=== PATIENT | male | born 1985 | race Caucasian/White ===

== ENCOUNTER 2018-05-10 08:30 | Emergency (ER) | payer BC ==
[~2018-05-10 08:30] MED LIST: ISOVUE-370 76%-LOCM 1 ML ONE
[2018-05-10 11:13] LABS: #Basophils 0.1 thou/uL (0.0-0.2); #Eosinphils 0.1 thou/uL (0.0-0.7); #Lymphocytes 2.9 thou/uL (1.20-3.40); #Monocytes 0.8 thou/uL (0.11-0.59); #Neutrophils 9.8 thou/uL (1.40-6.50); %Basophils 0.5 % (0.0-1.0); %Eosinophils 0.9 % (0.0-10.0); %Lymphocytes 21.1 % (21.0-51.0); %Monocytes 5.8 % (0.0-10.0); %Neutrophils 71.6 % (42.0-75.0); Hemoglobin 15.5 g/dL (14.0-18.0); Mean Corpuscular HGB CONC 32.6 g/dL (32.0-36.0); Mean Corpuscular Hemoglobin 30.5 pg (27.0-31.0); Mean Corpuscular Volume 93.5 fL (78.0-98.0); Mean Platelet Volume 7.4 fL (7.4-10.4); Platelet Count 257 thou/uL (130-400); RBC Distribution Width 11.3 % (11.5-14.5); Red Blood Cell (RBC) Count 5.08 mill/uL (4.70-6.10); White Blood Cell (WBC) Count 13.7 thou/uL (4.8-10.8)
[2018-05-10 11:37] LABS: ALT (SGPT) 35 U/L (8-55); AST (SGOT) 17 U/L (5-34); Albumin 4.1 g/dL (3.5-5.0); Alkaline Phosphatase 92 U/L (40-150); Anion Gap 15 mmol/L (10-20); BUN (Urea Nitrogen) 12 mg/dL (8.9-20.6); Bilirubin, Total 0.9 mg/dL (0.2-1.2); Calc. Creatinine Clearance 0 mL/min (70-130); Calcium 9.6 mg/dL (7.8-10.44); Carbon Dioxide 21 mmol/L (22-29); Chloride 105 mmol/L (98-107); Estimated GFR-MDRD 86; Glucose 90 mg/dL (70-105); Potassium 4.3 mmol/L (3.5-5.1); Protein, Total 7.1 g/dL (6.0-8.3); Sodium 137 mmol/L (136-145)
--- NOTE | 2018-05-10 12:12 | CT ---
PELVIC CT SCAN WITH IV CONTRAST: HISTORY: A 32-year-old male with a history of perirectal abscess with pain posterior to rectum. FINDINGS: There is an oval somewhat circumscribed hypodensity posterior to the rectum measuring approximately 1 .4 x 3.9 cm in transverse and AP dimensions. This certainly is worrisome for a small perirectal absc ess. IMPRESSION: Approximately 1.4 x 3.9 cm diameter somewhat oval rim-enhancing hypodense mass posterior to the rectu m, evidence for a rectal abscess. No evidence for pelvic adenopathy or abnormal fluid collection wit hin the pelvis. Bilateral fatty inguinal canals. POS: EMILEE
[2018-05-10] MEDS ORDERED: Ketorolac Tromethamine 30 MG/ML VIAL ONE (14:38)
== END 2018-05-10 15:01 | disposition home or self-care (01) ==
LOC: ERS 08:30
DX: K61.0 Anal abscess (principal); F32.9 Major depressive disorder, single episode, unspecified; F17.220 Nicotine dependence, chewing tobacco, uncomplicated; Z71.6 Tobacco abuse counseling; Z79.899 Other long term (current) drug therapy
CPT/HCPCS: 36415; 46050; 72193; 80053; 85025; 96374; 96375; 99406; J1885; J2270

== ENCOUNTER 2019-11-11 06:59 | Outpatient (CLI) | payer BC ==
[2019-11-11 11:26] LABS: #Eosinphils 0.1 thou/uL (0.0-0.7); #Lymphocytes 2.9 thou/uL (1.20-3.40); #Monocytes 0.5 thou/uL (0.11-0.59); #Neutrophils 4.4 thou/uL (1.40-6.50); %Basophils 0.6 % (0.0-1.0); %Eosinophils 1.3 % (0.0-10.0); %Lymphocytes 36.5 % (21.0-51.0); %Monocytes 6.5 % (0.0-10.0); %Neutrophils 55.2 % (42.0-75.0); Bacteria/HPF None Seen HPF (None Seen); Bilirubin Negative (Negative); Blood, Urine Negative (Negative); Clarity Clear (Clear); Glucose, Urine (Dipstick) Normal (Negative); Hemoglobin 16.1 g/dL (14.0-18.0); Leukocyte Negative Leu/uL (Negative); Mean Corpuscular HGB CONC 34.1 g/dL (32.0-36.0); Mean Corpuscular Hemoglobin 30.8 pg (27.0-31.0); Mean Corpuscular Volume 90.4 fL (78.0-98.0); Mean Platelet Volume 8.6 fL (7.4-10.4); Nitrite Negative (Negative); Platelet Count 229 thou/uL (130-400); Protein, Urine (Dipstick) Negative (Neg-Trace); RBC Distribution Width 11.1 % (11.5-14.5); RBC/HPF 0-3 HPF (0-3); Red Blood Cell (RBC) Count 5.21 mill/uL (4.70-6.10); Squamous Epithelial None Seen HPF (0-3); Urobilinogen Normal mg/dL (Less than 2); WBC/HPF 0-3 HPF (0-3)
== END 2019-11-11 07:00 | disposition home or self-care (01) ==
LOC: LABBT 06:59
PROVIDERS: ATTEND Orthopaedic Surgery
DX: Z01.812 Encounter for preprocedural laboratory examination (principal); S83.282A Other tear of lateral meniscus, current injury, left knee, initial encounter
CPT/HCPCS: 81001; 85025; 93005; 93010

== ENCOUNTER 2019-11-17 05:42 | Day surgery (SDC) | payer BC ==
[2019-11-11 10:05] VITALS: BMI 48.4
[2019-11-17] MEDS ORDERED: Lidocaine 1% w/Epinephrine 1:100K 20 ML VIAL ONE (06:37)
[2019-11-17] MEDS ORDERED: Bupivacaine 0.25% HCL 30 ML VIAL ONE (06:37)
[2019-11-17] MEDS ORDERED: Midazolam HCl 2 mg/2 ml Vial ONE (07:08)
[2019-11-17] MEDS ORDERED: Fentanyl 100 MCG/2 ML VIAL ONE ×4 (07:09→09:50)
[2019-11-17] MEDS ORDERED: Ketorolac Tromethamine 30 MG/ML VIAL ONE (10:19)
[2019-11-17] MEDS ORDERED: HYDROcodone/Acetaminophen 5/325 mg Tablet ONE (10:45)
[2019-11-17] MEDS ORDERED: PROPOFOL 200 MG/20 ML VIAL ONE (10:51)
[2019-11-17] MEDS ORDERED: Lidocaine 1% PF 5 ML VIAL ONE (10:51)
--- NOTE | 2019-11-17 11:33 | HP ---
HISTORY OF PRESENT ILLNESS: Mr. Abimael Arellano is a 34-year-old male, who presents with left knee pain, lateral knee pain intermittent for an increased time. Pain is 5/10. Pain began over 2 months ago. The patient has a previous DVT in his right knee and as a youth history of a left ACL reconstruction. Pain occurs with rotation. Pain is affecting sleep, limiting motion. PAST MEDICAL HISTORY: Includes hypertension, anxiety, depression, knee pain, and mood disorder. PAST SURGICAL HISTORY: Left ACL reconstruction with MCL. MEDICATIONS: Currently include; 1. Amlodipine. 2. Desvenlafaxine. 3. Hydroxyzine. 4. Tapentadol. ALLERGIES: METHYLPREDNISOLONE. SOCIAL HISTORY: The patient quit in 2004, was a half a pack a day. . Occasional alcohol. PHYSICAL EXAMINATION: GENERAL: Alert and oriented male, in no acute distress. EXTREMITIES: The patient's left lower extremity, the patient has previous ACL incision scar. He has no ecchymosis, no swelling. He has lateral tenderness noted. anterior /posterior drawer negative. Positive Andreas's. Neurovascularly intact. Negative Homans'. IMAGING DATA: MRI showed a previous ACL graft without signs of acute failure, radial tear, lateral meniscus tear. ASSESSMENT AND PLAN: The patient will be taken to the OR for an arthroscopic lateral meniscectomy. The patient will be started on Xarelto 12 hours postop. I discussed risks and benefits of potential blood clots. I discussed the risks and benefits of surgery to include, pain, scar, bleeding, infection, damage to vital structures, decreased range of motion and strength, arthritis, loss of life or limb, unexpected complications. The patient understands the risks and benefits and elects to proceed. Job ID: [id number] [facility]
--- NOTE | 2019-11-17 11:43 | OP ---
DATE OF PROCEDURE: 11/17/2019 PREOPERATIVE DIAGNOSES: 1. Left lateral meniscus tear. 2. History of previous anterior cruciate ligament reconstruction. POSTOPERATIVE DIAGNOSES: 1. Left lateral meniscus tear. 2. History of previous anterior cruciate ligament reconstruction. PROCEDURES PERFORMED: 1. Left radial tear of the lateral meniscus. 2. Left anterior cruciate ligament reconstruction intact. SALES LEDGER ADMINISTRATOR: None. ANESTHESIOLOGIST: Woodrow Gaxiola MD ANESTHESIA: The patient received a LMA. ESTIMATED BLOOD LOSS: Less than 10 mL. TOURNIQUET TIME: 21 minutes at 300 mmHg. ANTIBIOTICS: Ancef 2 g. COMPLICATIONS: None. HISTORY OF PRESENT ILLNESS: Mr. Arellano is a 34-year-old male, who presents with lateral knee pain, which had been present for about 2-1/2 months. 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 The patient has history of ACL reconstruction as a teenager. The patient had pain that affects the sleep. The patient has MRI evidence of a previous ACL graft with a radial tear of lateral meniscus. I discussed with the patient the risks and benefits of left knee arthroscopy for debridement of lateral meniscus to include, pain, scar, bleeding, infection, damage to vital structures, decreased range of motion and strength, arthritis, vital organ damage, loss of life or limb as well as blood clots. The patient understood the risks and benefits of the procedure and elects to proceed. DESCRIPTION OF PROCEDURE: Time-out was performed designating the patient's left lower extremity as the operative site based on site, consents, and marking. After time-out, the patient's left lower extremity was prepped and draped in sterile fashion. Tourniquet was brought up and left for 21 minutes. Previous horizontal incision was made laterally through the old scar, came into the knee. I then used a spinal needle to localize, excised some of the fat pad was removed, visualized the ACL, was inside the knee joint, which was intact. There was some synovium that was redundant, but it followed its course and tracked. He had negative drawer on exam. I saw his PCL. I then moved to the patellofemoral. There was little fissuring of the patella and the trochlear groove, but no full-thickness or significant defects within the gutters, which were clear. I looked at the medial meniscus, which showed no obvious deepa signs of tearing. Within the lateral meniscus, I saw a small radial tear on the lateral aspect of the body. This was probed. I used a small rongeur and a small biter, cleaned it back and shaver to smooth out the edge. I took my final pictures, washed and closed. I had injected 25 mL of lidocaine with epinephrine preprocedure, 25 mL of Marcaine 0.25% plain postprocedure into the portals as well as the knee joint. The patient will be started on Xarelto 12 hours later to decrease the risk of blood clot. The patient will follow up with me in-house. The patient will be followed at home, will be weightbearing as tolerated and he will follow up with us in clinic in about 12 to 14 days. Job ID: [id number]
== END 2019-11-17 12:10 | disposition home or self-care (01) ==
LOC: SDC 05:42
PROVIDERS: ATTEND Orthopaedic Surgery
PROC: 0SBD4ZZ Excision of Left Knee Joint, Percutaneous Endoscopic Approach (ICD-10-PCS; principal; 2019-11-17)
DX: S83.282A Other tear of lateral meniscus, current injury, left knee, initial encounter (principal); I10 Essential (primary) hypertension; F41.9 Anxiety disorder, unspecified; F32.9 Major depressive disorder, single episode, unspecified; Z79.899 Other long term (current) drug therapy; Z88.8 Allergy status to other drugs, medicaments and biological substances; Z87.891 Personal history of nicotine dependence
CPT/HCPCS: J0690; J1885; J2001; J2250; J2704; J3010; S0020

== ENCOUNTER 2020-07-01 07:49 | Inpatient (IN) | payer BC ==
[2020-07-01] MEDS ORDERED: Acetaminophen 500 MG TAB ONE (08:23)
[2020-07-01] MEDS ORDERED: Ondansetron PF 4 MG/2 ML Vial ONE (08:23)
[2020-07-01 08:36] LABS: #Lymphocytes 1.5 thou/uL (1.20-3.40); #Monocytes 0.6 thou/uL (0.11-0.59); #Neutrophils 13.5 thou/uL (1.40-6.50); %Basophils 0.1 % (0.0-1.0); %Eosinophils 0.1 % (0.0-10.0); %Lymphocytes 9.6 % (21.0-51.0); %Monocytes 3.8 % (0.0-10.0); %Neutrophils 86.4 % (42.0-75.0); Hemoglobin 16.6 g/dL (14.0-18.0); Mean Corpuscular HGB CONC 33.7 g/dL (32.0-36.0); Mean Corpuscular Hemoglobin 30.9 pg (27.0-31.0); Mean Corpuscular Volume 91.6 fL (78.0-98.0); Mean Platelet Volume 7.8 fL (7.4-10.4); Platelet Count 218 thou/uL (130-400); RBC Distribution Width 11.3 % (11.5-14.5); Red Blood Cell (RBC) Count 5.37 mill/uL (4.70-6.10); White Blood Cell (WBC) Count 15.6 thou/uL (4.8-10.8)
[2020-07-01] MEDS ORDERED: cefTRIAXone\\ROCEPHIN 2 GM VIAL ONE (08:54)
[2020-07-01] MEDS ORDERED: Aspirin Chewable 81 MG TAB ONE (08:55)
[2020-07-01] MEDS ORDERED: Dexamethasone 10 MG/ML VIAL ONE (08:55)
[2020-07-01] MEDS ORDERED: Albuterol 200 PUFF (6.7GM INHALER) ONE (08:55)
[2020-07-01 09:04] LABS: ALT (SGPT) 37 U/L (8-55); AST (SGOT) 24 U/L (5-34); Albumin 4.1 g/dL (3.5-5.0); Alkaline Phosphatase 70 U/L (40-110); Anion Gap 16 mmol/L (10-20); BUN (Urea Nitrogen) 15 mg/dL (8.9-20.6); Bilirubin, Total 1.2 mg/dL (0.2-1.2); Calc. Creatinine Clearance 0 mL/min (70-130); Calcium 9.5 mg/dL (7.8-10.44); Carbon Dioxide 27 mmol/L (22-29); Chloride 97 mmol/L (98-107); Estimated GFR-MDRD 66; Globulin 3.3 g/dL (2.4-3.5); Glucose 107 mg/dL (70-105); Potassium 3.3 mmol/L (3.5-5.1); Protein, Total 7.4 g/dL (6.0-8.3); Sodium 137 mmol/L (136-145)
[2020-07-01] MEDS ORDERED: Ketorolac Tromethamine 30 MG/ML VIAL ONE (09:09)
--- NOTE | 2020-07-01 09:39 | CT ---
Head CT without contrast 07/01/2020: Comparison: None HISTORY: Covid positive patient, severe headaches TECHNIQUE: Axial CT imaging at 5 mm intervals from vertex through skull base without contrast FINDINGS: There is partial opacification of the right sphenoid sinus posteriorly. No displaced calvar ial fracture. No intracranial hemorrhage, midline shift, or mass effect. IMPRESSION: No intracranial hemorrhage.
[2020-07-01] MEDS ORDERED: Senokot S 8.6-50 MG TAB PO PRN (09:49)
[2020-07-01] MEDS ORDERED: Acetaminophen 325 MG TAB PO PRN ×2 (09:49→10:58)
[2020-07-01] MEDS ORDERED: Ondansetron PF 4 MG/2 ML Vial IVP PRN (09:49)
--- NOTE | 2020-07-01 10:12 | CT ---
CT CHEST: 07/01/20 PROVIDED CLINICAL HISTORY: Dyspnea. COVID positive. FINDINGS: The heart, pericardium and great vessels are suboptimally evaluated in the absence of IV contrast mat erial. Prominent by number and upper limits of normal in caliber mediastinal lymph nodes are seen. No eviden ce for axillary lymph node enlargement. Evaluation for hilar lymph node enlargement is limited by lac k of IV contrast material. The airway appears patent and of normal caliber. There are diffuse patchy ground glass opacities in a primarily peripheral distribution involving both lungs with associated interstitial thickening and occasional consolidation. There is no pleural fluid or pneumothorax apparent. The visualized portions of the upper abdomen demonstrate an unremarkable unenhanced CT appearance. No concerning lytic or blastic bony lesions are seen. IMPRESSION: Extensive bilateral pulmonary parenchymal opacities, typical for COVID pneumonia. POS: SHARLENE
--- NOTE | 2020-07-01 10:27 | PDOC.HHP ---
Hospitalist HPI - History of Present Illness Worsening Covid symptoms History of Present Illness: PCP: Dr. Farrukh Johnson The patient is a 35-year-old male with a past medical history significant for hypertension that comes into the emergency department for worsening Covid symptoms. The patient reports that he was diagnosed with Covid infection on 06/26/2020. He reports that his PCP, at that time started him on a azithromycin oral antibiotics. Today would be his last dose of the antibiotic regimen, ho wever, he did not take his medication today. He reports that this morning he became severely short of breath, with associated chest pain, heart palpitations, severe headache. He reports that he has had some mild abdominal pain, nausea, vomiting and diarrhea. He reports that he has had 2 loose stools, denies any hematochezia or melena. He reports that his headache is generalized, denies neck stiffness, vision changes, focal motor deficits, difficulty speaking or history of migraines. He reports that his chest pain is generalized, only present with coughing, exacerbated and relieved by nothing. He has no history of DVT/PE. Denies any illicit drug use. He has no history of COPD/asthma. He reports that his cough is productive, thick mucus. Denies any hemoptysis. He denies any urinary symptoms. ED Course: VITAL SIGNS [place] Jul 01, 2020 07:50 LAUREN Ruelas [place] BP: 118/80, Pulse: 121, Resp: 40, Temp: 102.4 (Oral), Pain: 8, O2 sat: 85 on (Room Air), Time: 07/01/2020 07:50. VITAL SIGNS [place] Jul 01, 2020 08:10 LAUREN Gonsales Lauren BP: 92/74, MAP: 80, Pulse: 118, Resp: 38, Pain: 8, O2 sat: 95 on (3L Oxygen), Time: 07/01/2020 08:10. VITAL SIGNS [place] Jul 01, 2020 08:30 LAUREN Gonsales Lauren BP: 138/84, Pulse: 105, Resp: 40, Pain: 8, O2 sat: 94 on (3L Oxygen), Time: 07/01/2020 08:30. Medication ministration: K-Dur 40 mEq Oral Acknowledged 09:23 07/01/2020 Toradol injection 30 mg IV Push Given 09:14 07/01/2020 Aspirin Low Dose 324 mg Oral Given 09:07 07/01/2020 Proventil HFA 2 inhalation Inhaler-MDI Given 09:07 07/01/2020 Decadron Phosphate injection 10 mg IV Push Given 09:07 07/01/2020 cefTRIAXone injection 2 g IV Piggy Back Given 08:54 07/01/2020 ondansetron 4 mg IV Push Given 08:44 07/01/2020 Tylenol 1 g Oral Given 08:44 07/01/2020 sodium chloride 0.9 % intravenous 1000 mL IV Fluid Infusion Given 08:19 07/01/2020 Hospitalist ROS - Review of Systems All other systems reviewed; all pertinent +/- noted in HPI/Subj - Medication Medications: 1. Devenlafaxine 100mg po daily. 2. Norvasc 10mg po daily. Allergies: methylprednisolone (Unconfirmed), No Known Drug Allergies Hospitalist History - Past Medical History Source: patient, RN notes reviewed Cardiac: reports: HTN - Past Surgical History Past Surgical History: reports: Other (Left knee surgery) - Family History Other Family History: Noncontributory to this case - Social History Smoking Status: Former smoker (Quit 2004, 09/01 ppd) Alcohol: reports: Rare Drugs: reports: none Living Situation: With Family Occupation: Works at [employer] Activity level: independent ambulation - Exam General Appearance: NAD, awake alert, ill appearing (Mildly ill-appearing) General - other findings: speaking complete sentences, obese Eye: anicteric sclera ENT: normocephalic atraumatic, dry oral mucosa Neck: supple, symmetric Heart: RRR, no murmur, no gallops, no rubs, normal peripheral pulses Respiratory: no wheezes, rales, rhonchi Gastrointestinal: soft, non-tender, normal bowel sounds, no guarding, no rigidity Extremities: no cyanosis, no edema Skin: no rashes Neurological: cranial nerve grossly intact, no weakness, no focal deficits. negative: facial droop, speech deficit Musculoskeletal: normal tone, normal strength Psychiatric: normal affect, A&O x 3 Hospitalist Results - Labs Result Diagrams: 07/01/20 08:17 07/01/20 08:17 Lab results: WBC 15.6 thou/uL (4.8-10.8) H 07/01/20 08:17 Hgb 16.6 g/dL (14.0-18.0) 07/01/20 08:17 Hct 49.2 % (42.0-52.0) 07/01/20 08:17 MCV 91.6 fL (78.0-98.0) 07/01/20 08:17 Plt Count 218 thou/uL (130-400) 07/01/20 08:17 Neutrophils % 86.4 % (42.0-75.0) H 07/01/20 08:17 Sodium 137 mmol/L (136-145) 07/01/20 08:17 Potassium 3.3 mmol/L (3.5-5.1) L 07/01/20 08:17 Chloride 97 mmol/L (98-107) L 07/01/20 08:17 Carbon Dioxide 27 mmol/L (22-29) 07/01/20 08:17 BUN 15 mg/dL (8.9-20.6) 07/01/20 08:17 Creatinine 1.26 mg/dL (0.7-1.3) 07/01/20 08:17 Glucose 107 mg/dL (70-105) H 07/01/20 08:17 Lactic Acid 1.3 mmol/L (0.5-2.2) 07/01/20 08:17 Calcium 9.5 mg/dL (7.8-10.44) 07/01/20 08:17 Total Bilirubin 1.2 mg/dL (0.2-1.2) 07/01/20 08:17 AST 24 U/L (5-34) 07/01/20 08:17 ALT 37 U/L (8-55) 07/01/20 08:17 Alkaline Phosphatase 70 U/L (40-110) 07/01/20 08:17 Troponin I 0.012 ng/mL (< 0.028) 07/01/20 08:17 C-Reactive Protein 30.29 mg/dL (= or < 0.5) H 07/01/20 08:17 Serum Total Protein 7.4 g/dL (6.0-8.3) 07/01/20 08:17 Albumin 4.1 g/dL (3.5-5.0) 07/01/20 08:17 - EKG Interpretation EK lead EKG interpreted by Emergency Department Physician at time of study, 12 lead EKG shows normal sinus rhythm, Rate (beats per minute): 78, Conduction normal, ST segments normal, T waves normal, Ector normal. - Radiology Interpretation CT scan - head Status: report reviewed by me Additional Comment: IMPRESSION: No intracranial hemorrhage. CT scan - chest Status: report reviewed by me Additional Comment: Extensive bilateral pulmonary parenchymal opacities, typical for Covid pneumonia Chest x-ray Status: pending Hospitalist H&P A/P - Problem (1) Acute respiratory failure with hypoxia Code(s): J96.01 - ACUTE RESPIRATORY FAILURE WITH HYPOXIA Status: Acute (2) Sepsis Code(s): A41.9 - SEPSIS, UNSPECIFIED ORGANISM Status: Acute (3) Pneumonia due to COVID-19 virus Code(s): U07.1 - COVID-19; J12.89 - OTHER VIRAL PNEUMONIA Status: Acute (4) Hypokalemia Code(s): E87.6 - HYPOKALEMIA Status: Acute (5) Chest pain Code(s): R07.9 - CHEST PAIN, UNSPECIFIED Status: Acute (6) Headache Code(s): R51.9 - HEADACHE, UNSPECIFIED Status: Acute (7) Hypertension Code(s): I10 - ESSENTIAL (PRIMARY) HYPERTENSION Status: Chronic (8) Depression Code(s): F32.9 - MAJOR DEPRESSIVE DISORDER, SINGLE EPISODE, UNSPECIFIED Status: Chronic - Plan Plan: 35/M with PMH HTN and recent Covid infection diagnosis presents for worsening Covid symptoms. Admit to telemetry floor, inpatient status. Expected length of stay greater than 2 midnights. Presented febrile, tachycardic, tachypneic, hypoxic, NL BP. EKG sinus rhythm 78 bpm, no ST elevations. CT brain negative for acute process. CT chest extensive bilateral pulmonary parenchymal opacities, typical for Covid pneumonia. CXR and ABG pending. Troponin negative, DD 0.87, WBC 15.7, LA 1.3. Ferritin 852, CRP 30.29, LDH 375, DD 0.87, lymphocytopenia #Acute respiratory failure with hypoxia Upon examination no acute respiratory distress. 95% SPO2 on 3 LNC. Continue dexamethasone daily. Continue Rocephin and add azithromycin daily. Pending ABG results, will consult ID for remdesivir rec. Isolation precautions. Trend acute phase reactants. Start Vit D, Vit C, zinc. Lovenox twice daily #Sepsis Likely secondary to Covid pneumonia infection. No blood CX taken. #Pneumonia due to Covid 19 virus Plan as above, per problem #1. #Hypokalemia Mild. Presented K 3.3 Received 40 mEq in ED. We will check magnesium level Recheck level in a.m. #Chest pain Atypical. Cardiac risk factors include hypertension. Likely secondary to problem #1 and 2. We will trend troponins. We will continue aspirin. #Headache severe. Resolved on assessment. No focal deficits CT brain negative. Likely related to Problem #3. Continue tylenol prn. #Hypertension Presented normotensive. Takes Norvasc at home. Restart home medication. #Depression Denies SI/HI. Restart home dose Desvenflaxine Lovenox for DVT prophylaxis. Pepcid for GI prophylaxis. Full code. Discussed the case with Dr. Canseco.
[2020-07-01] MEDS ORDERED: HYDROcodone/Acetaminophen 5/325 mg Tablet PO PRN (10:58)
[2020-07-01] MEDS ORDERED: Guaifenesin DM 100-10/5 ML UDCUP PO PRN (10:58)
[2020-07-01] MEDS ORDERED: Benzonatate 100 MG CAP PO PRN (11:04)
[2020-07-01 11:33] LABS: Actual Bicarbonate (HCO3a) 24.5 mEq/L (22-28); Analyzer IN Cardio ER; CO2 Tension 39.3 mmHg (35.0-45.0); Calcium, Ionized (arterial) 1.16 mmol/L (1.12-1.30); Carboxyhemoglobin (COHb) 0.5 gm% (0.0-3.0); Hemoglobin (Hb) 15.4 g/dL (14.0-18.0); Potassium - ABG Lab 3.55 mmol/L (3.70-5.30); pH, Arterial 7.41 (7.35-7.45)
--- NOTE | 2020-07-01 11:36 | RAD ---
PORTABLE CHEST: 07/01/20 PROVIDED CLINICAL HISTORY: Shortness of breath. COVID positive. COMPARISON: 03/21/2012 FINDINGS: Evaluation is limited by patient body habitus. Heart size appears normal. There are bilateral patchy parenchymal and interstitial opacities involving primarily the mid to lower lung zones, typical for C OVID pneumonia. There is no pleural fluid or pneumothorax apparent. IMPRESSION: Bilateral pulmonary parenchymal opacities, typical for COVID pneumonia. POS: SHARLENE
[2020-07-01 11:37] LABS: ALV-art Gradient 99.315 mmHg (0-20); O2 Tension (PaO2), arterial 51.2 mmHg (80.0-100.0); Puncture Site RBRACH
[2020-07-01] MEDS ORDERED: Venlafaxine HCl XR 150 MG CAP PO SCH (11:45)
[2020-07-01] MEDS ORDERED: Potassium Chloride 20 MEQ TAB ONE (12:00)
[2020-07-01 12:33] LABS: Troponin I 0.027 ng/mL (< 0.028)
[2020-07-01] MEDS ORDERED: Azithromycin 500 MG VIAL ONE (14:47)
[2020-07-01 15:14] VITALS: BMI 43.5
[2020-07-01] MEDS: Venlafaxine HCl XR 150 MG CAP PO SCH (16:06)
[2020-07-01] MEDS: Azithromycin 500 MG in Sodium Chloride 0.9% 250 ML 250 ML IVPB SCH (16:06)
[2020-07-01 17:00] LABS: Troponin I Less than 0.010 ng/mL (< 0.028)
[2020-07-01] MEDS ORDERED: REMDESIVIR (EUA) 200 MG in Sodium Chloride 0.9% 250 ML 210 ML IV SCH (18:00)
[2020-07-01] MEDS: HYDROcodone/Acetaminophen 5/325 mg Tablet PO PRN ×2 (18:34→21:48)
[2020-07-01] MEDS: Enoxaparin Sodium 40 MG/0.4 ML SYRINGE SC SCH (19:55)
[2020-07-01] MEDS: Famotidine 20 MG TAB PO SCH (19:55)
[2020-07-02 03:34] LABS: #Lymphocytes 1.3 thou/uL (1.20-3.40); #Monocytes 0.5 thou/uL (0.11-0.59); #Neutrophils 11.8 thou/uL (1.40-6.50); %Basophils 0.1 % (0.0-1.0); %Eosinophils 0.1 % (0.0-10.0); %Lymphocytes 9.6 % (21.0-51.0); %Monocytes 3.7 % (0.0-10.0); %Neutrophils 86.6 % (42.0-75.0); Hemoglobin 14.7 g/dL (14.0-18.0); Mean Corpuscular Hemoglobin 31.5 pg (27.0-31.0); Mean Corpuscular Volume 92.7 fL (78.0-98.0); Mean Platelet Volume 7.8 fL (7.4-10.4); Platelet Count 220 thou/uL (130-400); RBC Distribution Width 11.1 % (11.5-14.5); Red Blood Cell (RBC) Count 4.67 mill/uL (4.70-6.10); White Blood Cell (WBC) Count 13.6 thou/uL (4.8-10.8)
[2020-07-02 04:06] LABS: ALT (SGPT) 32 U/L (8-55); AST (SGOT) 22 U/L (5-34); Albumin 3.3 g/dL (3.5-5.0); Alkaline Phosphatase 55 U/L (40-110); Anion Gap 15 mmol/L (10-20); BUN (Urea Nitrogen) 19 mg/dL (8.9-20.6); Bilirubin, Total 0.7 mg/dL (0.2-1.2); Calc. Creatinine Clearance 294 mL/min (70-130); Calcium 9.1 mg/dL (7.8-10.44); Carbon Dioxide 20 mmol/L (22-29); Chloride 108 mmol/L (98-107); Estimated GFR-MDRD Greater than 90; Globulin 2.8 g/dL (2.4-3.5); Glucose 105 mg/dL (70-105); Potassium 4.3 mmol/L (3.5-5.1); Protein, Total 6.1 g/dL (6.0-8.3); Sodium 139 mmol/L (136-145)
[2020-07-02] MEDS: HYDROcodone/Acetaminophen 5/325 mg Tablet PO PRN ×4 (04:43→21:23)
[2020-07-02] MEDS: Aspirin 81 mg Enteric Coated Tablet PO SCH (07:55)
[2020-07-02] MEDS: Zinc Sulfate 220 MG CAP PO SCH (07:55)
[2020-07-02] MEDS: Enoxaparin Sodium 40 MG/0.4 ML SYRINGE SC SCH ×2 (07:55→19:50)
[2020-07-02] MEDS: Dexamethasone 4 mg/ml Vial SLOW IVP SCH (07:56)
[2020-07-02] MEDS: Famotidine 20 MG TAB PO SCH ×2 (07:56→19:50)
[2020-07-02] MEDS: Amlodipine 10 MG TAB PO SCH (07:56)
[2020-07-02] MEDS: Venlafaxine HCl XR 150 MG CAP PO SCH (07:56)
[2020-07-02] MEDS: Cholecalciferol 1,000 UNITS (25 MCG) TAB PO SCH (07:56)
[2020-07-02] MEDS: Ascorbic Acid 500 mg Chewable Tablet PO SCH (07:57)
[2020-07-02] MEDS ORDERED: cefTRIAXone\\ROCEPHIN 1 GM in Sodium Chloride 0.9% 100 ML IVPB SCH (09:00)
[2020-07-02] MEDS ORDERED: Enoxaparin Sodium 40 MG/0.4 ML SYRINGE SC SCH (09:00)
[2020-07-02] MEDS: Azithromycin 500 MG in Sodium Chloride 0.9% 250 ML 250 ML IVPB SCH (11:51)
[2020-07-02] MEDS: Fioricet 325/50/40 mg Tablet PO PRN ×2 (12:54→19:10)
--- NOTE | 2020-07-02 14:25 | PDOC.HOSPP ---
- Subjective Encounter Date: 07/02/20 Subjective: Denies chest pain or shortness of breath. He remains on high flow nasal cannula. - Objective Vital Signs & Weight: Vital Signs (12 hours) Temp Pulse Ox 07/02/20 12:00 98.2 F 07/02/20 08:00 97.7 F 94 L 07/02/20 04:40 96.4 F L Weight Weight 312 lb 6.32 oz Most Recent Monitor Data Heart Rate from ECG 96 NIBP 161/103 NIBP BP-Mean 122 Respiration from ECG 17 SpO2 96 I&O: 07/01/20 07/02/20 07/03/20 06:59 06:59 06:59 Intake Total 2660 Output Total 600 Balance 2059 Result Diagrams: 07/02/20 03:17 07/02/20 03:17 Hospitalist ROS - Medication Medications: Active Medications Generic Name Dose Route Start Last Admin Trade Name Freq PRN Reason Stop Dose Admin Acetaminophen/Butalbital/Caffeine 1 tab 07/02/20 09:52 07/02/20 12:54 Fioricet 325/50/40 Mg Tablet PO 07/07/20 09:53 1 tab Q4H PRN Administration Headache Hydrocodone Bitart/Acetaminophen 1 tab 07/01/20 10:58 07/01/20 17:30 Hydrocodone/Acetaminophen 5/325 Mg Tablet PO 1 tab Q4H PRN Administration Moderate Pain (4-6) Hydrocodone Bitart/Acetaminophen 2 tab 07/01/20 10:58 07/02/20 08:41 Hydrocodone/Acetaminophen 5/325 Mg Tablet PO 2 tab Q4H PRN Administration Severe Pain (7-10) Amlodipine Besylate 10 mg 07/02/20 09:00 07/02/20 07:56 Amlodipine 10 Mg Tab PO 10 mg DAILY MUKESH Administration Ascorbic Acid 1,000 mg 07/02/20 09:00 07/02/20 07:57 Ascorbic Acid 500 Mg Chewable Tablet PO 1,000 mg DAILY MUKESH Administration Aspirin 81 mg 07/02/20 09:00 07/02/20 07:55 Aspirin 81 Mg Enteric Coated Tablet PO 81 mg DAILY MUKESH Administration Cholecalciferol 2,000 units 07/02/20 09:00 07/02/20 07:56 Cholecalciferol 1,000 Units (25 Mcg) Tab PO 2,000 units DAILY MUKESH Administration Dexamethasone 6 mg 07/02/20 09:00 07/02/20 07:56 Dexamethasone 4 Mg/Ml Vial SLOW IVP 6 mg DAILY MUKESH Administration Enoxaparin Sodium 40 mg 07/01/20 21:00 07/02/20 07:55 Enoxaparin Sodium 40 Mg/0.4 Ml Syringe SC 40 mg 0900,2100 MUKESH Administration Famotidine 20 mg 07/01/20 21:00 07/02/20 07:56 Famotidine 20 Mg Tab PO 20 mg BID MUKESH Administration Ceftriaxone Sodium 1 gm/ 100 mls @ 200 mls/hr 07/02/20 09:00 07/02/20 07:57 Sodium Chloride IVPB 100 mls Q24HR MUKESH Administration Azithromycin 500 mg/ Sodium 250 mls @ 250 mls/hr 07/01/20 12:00 07/02/20 11:51 Chloride IVPB 250 mls 1200 MUKESH Administration Venlafaxine HCl 150 mg 07/01/20 12:00 07/02/20 07:56 Venlafaxine Hcl Xr 150 Mg Cap PO 150 mg DAILY MUKESH Administration Zinc Sulfate 220 mg 07/02/20 09:00 07/02/20 07:55 Zinc Sulfate 220 Mg Cap PO 220 mg DAILY MUKESH Administration - Exam General Appearance: awake alert Neck: supple, no JVD Heart: RRR, no murmur, no gallops, no rubs Respiratory: no wheezes, no tachypnea, rhonchi Gastrointestinal: soft Neurological: cranial nerve grossly intact, no new deficit Hosp A/P (1) Acute respiratory failure with hypoxia Code(s): J96.01 - ACUTE RESPIRATORY FAILURE WITH HYPOXIA Status: Acute (2) Headache Code(s): R51.9 - HEADACHE, UNSPECIFIED Status: Acute (3) Pneumonia due to COVID-19 virus Code(s): U07.1 - COVID-19; J12.89 - OTHER VIRAL PNEUMONIA Status: Acute (4) Depression Code(s): F32.9 - MAJOR DEPRESSIVE DISORDER, SINGLE EPISODE, UNSPECIFIED Status: Chronic (5) Hypertension Code(s): I10 - ESSENTIAL (PRIMARY) HYPERTENSION Status: Chronic - Plan Continue supplemental oxygen to maintain O2 saturation greater than 92%. Currently patient is requiring high flow nasal cannula. Continue dexamethasone. ID and pulmonology consulted.
[2020-07-02 16:16] LABS: Bacteria/HPF None Seen HPF (None Seen); Bilirubin Negative (Negative); Blood, Urine Negative (Negative); Clarity Clear (Clear); Glucose, Urine (Dipstick) Normal (Negative); Ketone, Urine 10 mg/dL (Negative); Leukocyte Negative Leu/uL (Negative); Mucous/LPF 1+ LPF (<2+); Nitrite Negative (Negative); Protein, Urine (Dipstick) 30 mg/dL (Neg-Trace); RBC/HPF 0-3 HPF (0-3); Specific Gravity, Urine 1.043 (1.002-1.036); Squamous Epithelial None Seen HPF (0-3); Urobilinogen 6 mg/dL (Less than 2); WBC/HPF 0-3 HPF (0-3)
[2020-07-02] MEDS: Sodium Chloride 0.9% 1,000 ML IV SCH (18:06)
[2020-07-02] MEDS: REMDESIVIR (EUA) 100 MG in Sodium Chloride 0.9% 250 ML 230 ML IV SCH (18:06)
--- NOTE | 2020-07-02 21:02 | CON ---
DATE OF CONSULTATION: REASON FOR CONSULTATION: COVID pneumonia. HISTORY OF PRESENT ILLNESS: A 35-year-old with history of obesity, hypertension, has been having symptoms approximately for 5 to 7 days. He tested positive on the . He was given oral antimicrobials in the outpatient setting, but developed worsening dyspnea, so he was admitted. Initial findings; BP 118/80, pulse 121, respirations 40, temperature 102.4, saturating at 85% on room air. He was in distress. The lung exam showed diminished breath sounds at the bases. Heart and abdomen examination normal. Neuro examination is nonfocal. Currently, Mr. Arellano is awake. He is sitting in bed. He appears better than when he came in, not as tachypneic, able to speak in full sentences. No headaches. No visual symptoms. Has completely lost the taste of food or the sense of smell. No sore throat, odynophagia, or dysphagia. He has this pleuritic or kind of muscle type of chest wall pain associated with coughing on the right side. No wheezing. No abdominal pain or diarrhea. No genitourinary symptoms. No joint symptoms. No neurological symptoms. PAST MEDICAL HISTORY: Obesity, hypertension, left knee arthroscopy. SOCIAL HISTORY: No drug use or alcoholic beverage use. He chews tobacco, but does not smoke. ALLERGIES: METHYLPREDNISOLONE WITH DIARRHEA REPORTEDLY. LIST OF MEDICATIONS: 1. Norvasc. 2. Ecotrin. 3. Azithromycin. 4. Ceftriaxone. 5. Decadron. 6. Remdesivir. PHYSICAL EXAMINATION: VITAL SIGNS: Temperature has been normal. BP 150/112, heart rate 90, is saturating now at 94% to 96% with 3 L nasal cannula. He had been on high-flow, but now has been transitioned to nasal cannula. SKIN: Normal. There is no lymphadenopathy. HEENT: Ocular movements are conjugate. Oral cavity normal. NECK: Supple. LUNGS: With a few crackles here and there, but no wheezing. HEART: S1, S2. Regular rate. ABDOMEN: Soft, not distended. No ascites. No bladder distention. EXTREMITIES: No joint inflammatory activity. Moving extremities equally. Cognitive function appears to be intact. No edema. LABORATORY DATA: White cell count is 15, now is 13.6; hemoglobin 14; platelets 220 with 86% neutrophils. D-dimer is 0.84. Creatinine 0.71. Ferritin 733. CRP was 26, which is down from 30 when he came in. Urinalysis was not particularly remarkable and bilateral diffuse infiltrates on chest CT consistent with COVID pneumonia. There is moderate ground glass infiltrates in distribution and severity. ASSESSMENT: Obesity with hypertension and severe COVID pneumonia. This is the 8th day of illness and he is on remdesivir since yesterday. Continue Decadron. We will go ahead and discontinue azithromycin and Rocephin, is on enoxaparin already. Hopefully will turn around quickly. Job ID: [id number] [facility]
[2020-07-03] MEDS: Sodium Chloride 0.9% 1,000 ML IV SCH ×2 (03:54→17:49)
[2020-07-03 03:56] LABS: #Lymphocytes 1.9 thou/uL (1.20-3.40); #Monocytes 0.5 thou/uL (0.11-0.59); #Neutrophils 8.3 thou/uL (1.40-6.50); %Basophils 0.2 % (0.0-1.0); %Eosinophils 0.2 % (0.0-10.0); %Lymphocytes 17.6 % (21.0-51.0); %Monocytes 4.8 % (0.0-10.0); %Neutrophils 77.1 % (42.0-75.0); Hemoglobin 14.7 g/dL (14.0-18.0); Mean Corpuscular HGB CONC 34.7 g/dL (32.0-36.0); Mean Corpuscular Hemoglobin 32.2 pg (27.0-31.0); Mean Corpuscular Volume 92.7 fL (78.0-98.0); Mean Platelet Volume 7.7 fL (7.4-10.4); Platelet Count 228 thou/uL (130-400); RBC Distribution Width 11.2 % (11.5-14.5); Red Blood Cell (RBC) Count 4.56 mill/uL (4.70-6.10); White Blood Cell (WBC) Count 10.7 thou/uL (4.8-10.8)
[2020-07-03] MEDS: HYDROcodone/Acetaminophen 5/325 mg Tablet PO PRN ×2 (05:04→18:07)
[2020-07-03] MEDS: Famotidine 20 MG TAB PO SCH ×2 (08:05→21:41)
[2020-07-03] MEDS: Ascorbic Acid 500 mg Chewable Tablet PO SCH (08:05)
[2020-07-03] MEDS: Aspirin 81 mg Enteric Coated Tablet PO SCH (08:05)
[2020-07-03] MEDS: Venlafaxine HCl XR 150 MG CAP PO SCH (08:05)
[2020-07-03] MEDS: Dexamethasone 4 mg/ml Vial SLOW IVP SCH (08:06)
[2020-07-03] MEDS: Cholecalciferol 1,000 UNITS (25 MCG) TAB PO SCH (08:06)
[2020-07-03] MEDS: Amlodipine 10 MG TAB PO SCH (08:06)
[2020-07-03] MEDS: Enoxaparin Sodium 40 MG/0.4 ML SYRINGE SC SCH ×2 (08:07→21:41)
[2020-07-03] MEDS: Zinc Sulfate 220 MG CAP PO SCH (08:08)
--- NOTE | 2020-07-03 15:56 | PDOC.HOSPP ---
- Subjective Encounter Date: 07/03/20 Subjective: The patient is feeling better today. - Objective Vital Signs & Weight: Vital Signs (12 hours) Temp Pulse Ox 07/03/20 12:00 97.2 F L 07/03/20 08:04 95 07/03/20 08:00 97.0 F L 95 07/03/20 04:00 97.4 F L Weight Weight 312 lb 6.32 oz Most Recent Monitor Data Heart Rate from ECG 58 NIBP 136/89 NIBP BP-Mean 104 Respiration from ECG 23 SpO2 96 I&O: 07/02/20 07/03/20 07/04/20 06:59 06:59 06:59 Intake Total 2660 2510 Output Total 600 900 Balance 2060 1610 Result Diagrams: 07/03/20 03:09 07/02/20 03:17 Hospitalist ROS - Medication Medications: Active Medications Generic Name Dose Route Start Last Admin Trade Name Freq PRN Reason Stop Dose Admin Acetaminophen/Butalbital/Caffeine 1 tab 07/02/20 09:52 07/02/20 19:10 Fioricet 325/50/40 Mg Tablet PO 07/07/20 09:53 1 tab Q4H PRN Administration Headache Hydrocodone Bitart/Acetaminophen 1 tab 07/01/20 10:58 07/01/20 17:30 Hydrocodone/Acetaminophen 5/325 Mg Tablet PO 1 tab Q4H PRN Administration Moderate Pain (4-6) Hydrocodone Bitart/Acetaminophen 2 tab 07/01/20 10:58 07/03/20 05:04 Hydrocodone/Acetaminophen 5/325 Mg Tablet PO 2 tab Q4H PRN Administration Severe Pain (7-10) Amlodipine Besylate 10 mg 07/02/20 09:00 07/03/20 08:06 Amlodipine 10 Mg Tab PO 10 mg DAILY MUKESH Administration Ascorbic Acid 1,000 mg 07/02/20 09:00 07/03/20 08:05 Ascorbic Acid 500 Mg Chewable Tablet PO 1,000 mg DAILY MUKESH Administration Aspirin 81 mg 07/02/20 09:00 07/03/20 08:05 Aspirin 81 Mg Enteric Coated Tablet PO 81 mg DAILY MUKESH Administration Cholecalciferol 2,000 units 07/02/20 09:00 07/03/20 08:06 Cholecalciferol 1,000 Units (25 Mcg) Tab PO 2,000 units DAILY MUKESH Administration Dexamethasone 6 mg 07/02/20 09:00 07/03/20 08:06 Dexamethasone 4 Mg/Ml Vial SLOW IVP 6 mg DAILY MUKESH Administration Enoxaparin Sodium 40 mg 07/01/20 21:00 07/03/20 08:07 Enoxaparin Sodium 40 Mg/0.4 Ml Syringe SC 40 mg 0900,2100 MUKESH Administration Famotidine 20 mg 07/01/20 21:00 07/03/20 08:05 Famotidine 20 Mg Tab PO 20 mg BID MUKESH Administration Remdesivir 100 mg/ Sodium 250 mls @ 250 mls/hr 07/02/20 18:00 07/02/20 18:06 Chloride IV 07/05/20 18:59 250 mls 1800 MUKESH Administration Sodium Chloride 1,000 mls @ 75 mls/hr 07/02/20 16:30 07/03/20 03:54 Normal Saline 0.9% IV 1,000 mls .[id number] MUKESH Administration Sodium Chloride 10 ml 07/01/20 10:58 07/03/20 08:09 Flush - Normal Saline 10 Ml Syringe IVF 10 ml PRN PRN Administration Saline Flush Venlafaxine HCl 150 mg 07/01/20 12:00 07/03/20 08:05 Venlafaxine Hcl Xr 150 Mg Cap PO 150 mg DAILY MUKESH Administration Zinc Sulfate 220 mg 07/02/20 09:00 07/03/20 08:08 Zinc Sulfate 220 Mg Cap PO 220 mg DAILY MUKESH Administration - Exam ENT: normocephalic atraumatic Neck: supple, no JVD Heart: RRR, no murmur Respiratory: CTAB, no wheezes, no rales, no ronchi, no tachypnea Gastrointestinal: soft Neurological: no new deficit Hosp A/P (1) Acute respiratory failure with hypoxia Code(s): J96.01 - ACUTE RESPIRATORY FAILURE WITH HYPOXIA Status: Acute (2) Headache Code(s): R51.9 - HEADACHE, UNSPECIFIED Status: Acute (3) Pneumonia due to COVID-19 virus Code(s): U07.1 - COVID-19; J12.89 - OTHER VIRAL PNEUMONIA Status: Acute (4) Depression Code(s): F32.9 - MAJOR DEPRESSIVE DISORDER, SINGLE EPISODE, UNSPECIFIED Status: Chronic (5) Hypertension Code(s): I10 - ESSENTIAL (PRIMARY) HYPERTENSION Status: Chronic - Plan Patient's oxygenation has improved since yesterday. Currently patient is requiring high flow nasal cannula. Continue dexamethasone and remdesivir. ID and pulmonology consulted.
[2020-07-03] MEDS: REMDESIVIR (EUA) 100 MG in Sodium Chloride 0.9% 250 ML 230 ML IV SCH (17:48)
[2020-07-03] MEDS: Doxycycline 100 MG CAP PO SCH (21:41)
[2020-07-04 04:10] LABS: ALT (SGPT) 33 U/L (8-55); AST (SGOT) 18 U/L (5-34); Albumin 2.9 g/dL (3.5-5.0); Alkaline Phosphatase 47 U/L (40-110); Bilirubin, Direct 0.2 mg/dL (0.1-0.3); Bilirubin, Total 0.4 mg/dL (0.2-1.2); Protein, Total 5.4 g/dL (6.0-8.3)
[2020-07-04] MEDS: Sodium Chloride 0.9% 1,000 ML IV SCH (06:25)
[2020-07-04] MEDS: HYDROcodone/Acetaminophen 5/325 mg Tablet PO PRN ×4 (06:36→21:37)
[2020-07-04] MEDS: Doxycycline 100 MG CAP PO SCH ×2 (07:49→20:04)
--- NOTE | 2020-07-04 07:49 | CON ---
DATE OF CONSULTATION: HISTORY OF PRESENT ILLNESS: Abimael Arellano is a 35-year-old gentleman who was admitted several days ago with fever, chills, body aches, and cough. He is coronavirus positive on the of this month. His is also positive. He thought he is going to . He came to the ER where x-ray was taken, which showed infiltrates. Admitted. He was now seen by Infectious Disease, started on Decadron and remdesivir, feels better. Works at [employer]. No history of previous pneumonia, TB, or asthma. Nonsmoker. PAST MEDICAL HISTORY: Hypertension. PREVIOUS SURGERIES: Left knee surgery. HOME MEDICATIONS: Include: 1. Amlodipine 5. 2. Effexor 150. ALLERGIES: METHYLPREDNISONE. REVIEW OF SYSTEMS: Otherwise, 10-point negative. PHYSICAL EXAMINATION: VITAL SIGNS: He is on low-flow O2, his sats are , blood pressure 136/98, pulse 80, respiratory rate 18. CHEST: No wheezing. No crackles. CARDIAC: Normal S1, S2. No gallops. ABDOMEN: No masses. LABORATORY DATA: D-dimer is 1.32. Additional lab shows white count 10,000; H and H 14 and 42; platelet count 278. Chemistry profile shows lytes are normal. His C-reactive protein is 26. Ferritin 373. ASSESSMENT: Coronavirus positive pneumonia. I would continue empiric antibiotics, remdesivir, consider plasma. Continue observation in the hospital. Consultation note, 70 minutes, 50% of direct patient care. Job ID: [id number]
[2020-07-04] MEDS: Cholecalciferol 1,000 UNITS (25 MCG) TAB PO SCH (07:50)
[2020-07-04] MEDS: Ascorbic Acid 500 mg Chewable Tablet PO SCH (07:50)
[2020-07-04] MEDS: Amlodipine 10 MG TAB PO SCH (07:50)
[2020-07-04] MEDS: Aspirin 81 mg Enteric Coated Tablet PO SCH (07:50)
[2020-07-04] MEDS: Venlafaxine HCl XR 150 MG CAP PO SCH (07:51)
[2020-07-04] MEDS: Dexamethasone 4 mg/ml Vial SLOW IVP SCH (07:51)
[2020-07-04] MEDS: Zinc Sulfate 220 MG CAP PO SCH (07:52)
[2020-07-04] MEDS: Famotidine 20 MG TAB PO SCH ×2 (07:52→20:04)
[2020-07-04] MEDS: Enoxaparin Sodium 40 MG/0.4 ML SYRINGE SC SCH ×2 (07:52→20:04)
--- NOTE | 2020-07-04 10:05 | PRG ---
DATE OF SERVICE: 07/04/2020 SUBJECTIVE: Abimael Arellano remains in the MICU on low-flow O2 4 L, sats 100%. OBJECTIVE: VITAL SIGNS: respiratory rate 18. GENERAL: He is feeling better. CHEST: No wheezing. No crackles. CARDIAC: Normal S1, S2. No gallops. ABDOMEN: Soft. LABORATORY DATA: C-reactive protein is down to 7.52. ASSESSMENT: Respiratory failure secondary to coronavirus positive pneumonia. Bilateral bronchopneumonia. PLAN: Continue Decadron, doxy, remdesivir. Plasma has been given. PT. Supportive care. We will follow. Job ID: [id number]
[2020-07-04] MEDS: Fioricet 325/50/40 mg Tablet PO PRN (15:37)
--- NOTE | 2020-07-04 16:22 | PDOC.HOSPP ---
- Subjective Encounter Date: 07/04/20 Subjective: Feels better. - Objective Vital Signs & Weight: Vital Signs (12 hours) Temp Pulse Ox 07/04/20 12:00 97.0 F L 07/04/20 08:00 97.1 F L 96 Weight Weight 312 lb 6.32 oz Most Recent Monitor Data Heart Rate from ECG 83 NIBP 144/83 NIBP BP-Mean 103 Respiration from ECG 28 SpO2 97 I&O: 07/03/20 07/04/20 07/05/20 06:59 06:59 06:59 Intake Total 2510 3516 Output Total 900 1275 Balance 1610 2241 Result Diagrams: 07/03/20 03:09 07/02/20 03:17 Hospitalist ROS - Medication Medications: Active Medications Generic Name Dose Route Start Last Admin Trade Name Freq PRN Reason Stop Dose Admin Acetaminophen/Butalbital/Caffeine 1 tab 07/02/20 09:52 07/04/20 15:37 Fioricet 325/50/40 Mg Tablet PO 07/07/20 09:53 1 tab Q4H PRN Administration Headache Hydrocodone Bitart/Acetaminophen 1 tab 07/01/20 10:58 07/01/20 17:30 Hydrocodone/Acetaminophen 5/325 Mg Tablet PO 1 tab Q4H PRN Administration Moderate Pain (4-6) Hydrocodone Bitart/Acetaminophen 2 tab 07/01/20 10:58 07/04/20 11:36 Hydrocodone/Acetaminophen 5/325 Mg Tablet PO 2 tab Q4H PRN Administration Severe Pain (7-10) Amlodipine Besylate 10 mg 07/02/20 09:00 07/04/20 07:50 Amlodipine 10 Mg Tab PO 10 mg DAILY MUKESH Administration Ascorbic Acid 1,000 mg 07/02/20 09:00 07/04/20 07:50 Ascorbic Acid 500 Mg Chewable Tablet PO 1,000 mg DAILY MUKESH Administration Aspirin 81 mg 07/02/20 09:00 07/04/20 07:50 Aspirin 81 Mg Enteric Coated Tablet PO 81 mg DAILY MUKESH Administration Benzonatate 100 mg 07/01/20 11:04 07/04/20 06:41 Benzonatate 100 Mg Cap PO 100 mg TIDPRN PRN Administration Cough Cholecalciferol 2,000 units 07/02/20 09:00 07/04/20 07:50 Cholecalciferol 1,000 Units (25 Mcg) Tab PO 2,000 units DAILY MUKESH Administration Dexamethasone 6 mg 07/02/20 09:00 07/04/20 07:51 Dexamethasone 4 Mg/Ml Vial SLOW IVP 6 mg DAILY MUKESH Administration Doxycycline Hyclate 100 mg 07/03/20 21:00 07/04/20 07:49 Doxycycline 100 Mg Cap PO 07/10/20 21:01 100 mg BID MUKESH Administration Enoxaparin Sodium 40 mg 07/01/20 21:00 07/04/20 07:52 Enoxaparin Sodium 40 Mg/0.4 Ml Syringe SC 40 mg 0900,2099 MUKESH Administration Famotidine 20 mg 07/01/20 21:00 07/04/20 07:52 Famotidine 20 Mg Tab PO 20 mg BID MUKESH Administration Remdesivir 100 mg/ Sodium 250 mls @ 250 mls/hr 07/02/20 18:00 07/03/20 17:48 Chloride IV 07/05/20 18:59 250 mls 1800 MUKESH Administration Sodium Chloride 1,000 mls @ 75 mls/hr 07/02/20 16:30 07/04/20 06:25 Normal Saline 0.9% IV 1,000 mls .[id number] MUKESH Administration Sodium Chloride 10 ml 07/01/20 10:58 07/03/20 08:09 Flush - Normal Saline 10 Ml Syringe IVF 10 ml PRN PRN Administration Saline Flush Venlafaxine HCl 150 mg 07/01/20 12:00 07/04/20 07:51 Venlafaxine Hcl Xr 150 Mg Cap PO 150 mg DAILY MUKESH Administration Zinc Sulfate 220 mg 07/02/20 09:00 07/04/20 07:52 Zinc Sulfate 220 Mg Cap PO 220 mg DAILY MUKESH Administration - Exam General Appearance: awake alert ENT: normocephalic atraumatic Neck: supple, no JVD Respiratory: normal chest expansion, no tachypnea Gastrointestinal: soft Neurological: cranial nerve grossly intact, no focal deficits Hosp A/P (1) Acute respiratory failure with hypoxia Code(s): J96.01 - ACUTE RESPIRATORY FAILURE WITH HYPOXIA Status: Acute (2) Headache Code(s): R51.9 - HEADACHE, UNSPECIFIED Status: Acute (3) Pneumonia due to COVID-19 virus Code(s): U07.1 - COVID-19; J12.89 - OTHER VIRAL PNEUMONIA Status: Acute (4) Depression Code(s): F32.9 - MAJOR DEPRESSIVE DISORDER, SINGLE EPISODE, UNSPECIFIED Status : Chronic (5) Hypertension Code(s): I10 - ESSENTIAL (PRIMARY) HYPERTENSION Status: Chronic - Plan Patient's oxygenation has improved since yesterday. Currently patient is requiring high flow nasal cannula. Continue dexamethasone and remdesivir. The patient to receive convalescent plasma today.
--- NOTE | 2020-07-04 16:31 | PQF ---
CLINICAL DOCUMENTATION CLARIFICATION FORM: Dear Dr. LOREE MACHADO Date: 07-04-20 Please exercise your independent, professional judgment in responding to the clarification form. Clinical indicators are provided on the bottom of this form for your review. Please check appropriate box(es) to clarify if the following diagnosis has been ruled in our ruled out: SEPSIS [ > ] Ruled in diagnosis [ ] Continue to treat [ ] Resolved [ ] Ruled out diagnosis [ ] Other diagnosis [ ] Unable to determine In addition, please specify: Present on Admission (POA): [ > ] Yes [ ] No [ ] Unable to determine For continuity of documentation, please document condition throughout progress notes and discharge summary. Thank You. To be completed by CDI/Coding staff for physician review: CLINICAL INDICATORS - SIGNS / SYMPTOMS / LABS / RESULTS AND LOCATION IN MR: ER DX 07-01-20: COVID PNEUMONIA, CHEST PAIN ON BREATHING, DYSPNEA, FEVER H&P 07-01-20: ACUTE RESPIRATORY FAILURE WITH HYPOXIA, ACUTE SEPSIS, PNEUMONIA DUE TO COVID -19 VIRUS, HYPOKALEMIA, CP, HEADACHE, HTN, DEPRESSION WBC: 07-01-20: 15.6, 07-02-20: 13.6 CRP 07-01-20: 30.29 07-01-20: 26.19 07-03-20: 7.52 RISK FACTORS / RESULTS AND LOCATION IN MR: H&P 07-01-20: ACUTE RESPIRATORY FAILURE WITH HYPOXIA, ACUTE SEPSIS, PNEUMONIA DUE TO COVID -19 VIRUS, HYPOKALEMIA, CP, HEADACHE, HTN, DEPRESSION TREATMENTS / RESULTS AND LOCATION IN MR: ER NOTES 07-04-20: CEFTRIAXONE IV, NS IVF CDS Signature: Bernie Craig Phone #: [phone] Date: 07-04-20 This is a permanent part of the Medical Record [facility]
[2020-07-04] MEDS: REMDESIVIR (EUA) 100 MG in Sodium Chloride 0.9% 250 ML 230 ML IV SCH (18:08)
[2020-07-05] MEDS: HYDROcodone/Acetaminophen 5/325 mg Tablet PO PRN ×3 (03:44→13:05)
[2020-07-05 06:34] LABS: ALT (SGPT) 73 U/L (8-55); AST (SGOT) 44 U/L (5-34); Albumin 3.5 g/dL (3.5-5.0); Alkaline Phosphatase 58 U/L (40-110); Bilirubin, Direct 0.2 mg/dL (0.1-0.3); Bilirubin, Total 0.4 mg/dL (0.2-1.2); Protein, Total 6.2 g/dL (6.0-8.3)
--- NOTE | 2020-07-05 09:12 | PRG ---
DATE OF SERVICE: 07/05/2020 SUBJECTIVE: Abimael Arellano, who is gillette positive status, is doing well. Temperature 96, pulse 78, saturations 90% on room air, blood pressure 130/80. His main complaint is he got significant headache. OBJECTIVE: CHEST: No wheezing. No crackles. CARDIAC: Normal S1 and S2. No gallops. IMPRESSION AND PLAN: Headache. Gillette positive pneumonia, has received remdesivir, day #4. He is on Decadron. He probably can be transferred out of the [facility] to medical floor. Switch him over to p.o. prednisone. Eventually discharge home in the next 24 hours if he remains afebrile and not hypoxic. Job ID: [id number]
[2020-07-05] MEDS: Aspirin 81 mg Enteric Coated Tablet PO SCH (09:17)
[2020-07-05] MEDS: Zinc Sulfate 220 MG CAP PO SCH (09:17)
[2020-07-05] MEDS: Amlodipine 10 MG TAB PO SCH (09:17)
[2020-07-05] MEDS: Doxycycline 100 MG CAP PO SCH (09:18)
[2020-07-05] MEDS: Cholecalciferol 1,000 UNITS (25 MCG) TAB PO SCH (09:18)
[2020-07-05] MEDS: Famotidine 20 MG TAB PO SCH (09:19)
[2020-07-05] MEDS: Venlafaxine HCl XR 150 MG CAP PO SCH (09:19)
[2020-07-05] MEDS: Ascorbic Acid 500 mg Chewable Tablet PO SCH (09:19)
[2020-07-05] MEDS: Enoxaparin Sodium 40 MG/0.4 ML SYRINGE SC SCH (09:19)
[2020-07-05] MEDS: Dexamethasone 4 mg/ml Vial SLOW IVP SCH (09:20)
[2020-07-05 12:27] VITALS: TEMP 97
--- NOTE | 2020-07-06 01:30 | DIS ---
DATE OF ADMISSION: 07/01/2020 DATE OF DISCHARGE: 07/05/2020 DISCHARGE DIAGNOSES: 1. Acute respiratory failure with hypoxia secondary to coronavirus disease 2019 pneumonia. 2. Sepsis. 3. Hypertension. 4. Headache. 5. Depression. DISCHARGE MEDICATION: Prednisone 20 mg orally daily for 5 days. HISTORY OF PRESENT ILLNESS AND HOSPITAL COURSE: The patient is a 35-year-old male with past medical history of hypertension, who presented to the hospital complaining of shortness of breath. The patient was diagnosed with COVID-19 on 06/26. In the ER, he was found to be hypoxic and admitted to the hospital for further management. He was managed with initial antibiotics, remdesivir, and convalescent plasma. His sepsis resolved and antibiotics were discontinued. The patient received a 4-day treatment of remdesivir. His hypoxia resolved and he was discharged home in a stable condition. Job ID: [id number]
[2020-07-06] MEDS ORDERED: predniSONE 20 MG TAB PO SCH (08:00)
--- NOTE | 2020-07-07 16:56 | EKG ---
Test Reason : Blood Pressure : / mmHG Vent. Rate : 104 BPM Atrial Rate : 104 BPM P-R Int : 138 ms QRS Dur : 086 ms QT Int : 326 ms P-R-T Axes : 024 003 -04 degrees QTc Int : 428 ms Sinus tachycardia Possible Left atrial enlargement Possible Inferior infarct , age undetermined Abnormal ECG Confirmed by FILIPPO COBIAN ([id number]), newspaper managing editor LUIS LEVY ([id number]) on 07/07/2020 4:56:11 PM Referred By: MANGO Confirmed By:FILIPPO COBIAN
== END 2020-07-05 15:30 | disposition home or self-care (01) | DRG 871 ==
LOC: ERS 07:49 → ERHOLD 10:16 → IMCU/EMU 15:00
PROVIDERS: ADMIT Internal Medicine; ATTEND Internal Medicine
PROC: XW033E5 Introduction of Remdesivir Anti-infective into Peripheral Vein, Percutaneous Approach, New Technology Group 5 (ICD-10-PCS; principal; 2020-07-01)
PROC: XW033E5 Introduction of Remdesivir Anti-infective into Peripheral Vein, Percutaneous Approach, New Technology Group 5 (ICD-10-PCS; 2020-07-02)
PROC: XW033E5 Introduction of Remdesivir Anti-infective into Peripheral Vein, Percutaneous Approach, New Technology Group 5 (ICD-10-PCS; 2020-07-03)
PROC: XW033E5 Introduction of Remdesivir Anti-infective into Peripheral Vein, Percutaneous Approach, New Technology Group 5 (ICD-10-PCS; 2020-07-04)
PROC: XW13325 Transfusion of Convalescent Plasma (Nonautologous) into Peripheral Vein, Percutaneous Approach, New Technology Group 5 (ICD-10-PCS; 2020-07-04)
PROC: XW033E5 Introduction of Remdesivir Anti-infective into Peripheral Vein, Percutaneous Approach, New Technology Group 5 (ICD-10-PCS; 2020-07-05)
DX: A41.89 Other specified sepsis (principal); U07.1 COVID-19; J12.89 Other viral pneumonia; J96.01 Acute respiratory failure with hypoxia; Z68.41 Body mass index [BMI] 40.0-44.9, adult; F32.9 Major depressive disorder, single episode, unspecified; I10 Essential (primary) hypertension; E66.9 Obesity, unspecified; R51.9 Headache, unspecified; E87.6 Hypokalemia; R07.89 Other chest pain; Z79.899 Other long term (current) drug therapy; Z79.82 Long term (current) use of aspirin; Z87.891 Personal history of nicotine dependence
CPT/HCPCS: 36415; 36430; 70450; 71045; 71250; 80053; 80076; 81001; 82728; 82805; 83605; 83615; 83735; 84484; 85025; 85379; 86140; 86850; 86900; 86901; 93005; 94760; 96365; 96375; J0456; J0696; J1100; J1650; J1885; J2405; J3490; J7050; P9017

== ENCOUNTER 2021-02-26 14:59 | Outpatient (CLI) | payer BC | END 2021-02-26 15:00 | disposition home or self-care (01) | LOC: BICMRI 14:59 | PROVIDERS: ATTEND Family Medicine | DX: M51.16 Intervertebral disc disorders with radiculopathy, lumbar region (principal); G89.4 Chronic pain syndrome; M47.26 Other spondylosis with radiculopathy, lumbar region | CPT/HCPCS: 72148 ==

== ENCOUNTER 2021-07-31 15:46 | Outpatient (CLI) | payer BC ==
[2021-07-31 17:01] LABS: #Eosinphils 0.1 10x3/uL (0.0-0.5); #Monocytes 0.4 10x3/uL (0.0-1.1); #Neutrophils 4.4 10x3/uL (1.5-8.4); %Basophils 0.5 % (0.0-2.0); %Eosinophils 1.1 % (0.0-6.0); %Lymphocytes 32.6 % (18.0-47.0); %Monocytes 5.8 % (0.0-10.0); %Neutrophils 59.7 % (40.0-75.0); Hemoglobin 15.8 g/dL (13.5-17.5); Mean Corpuscular HGB CONC 34.1 g/dL (32.0-36.0); Mean Corpuscular Hemoglobin 30.8 pg (27.0-33.0); Mean Corpuscular Volume 90.3 fl (81.2-95.1); Platelet Count 261 10x3/uL (150-450); RBC Distribution Width 11.2 % (11.5-14.5); Red Blood Cell (RBC) Count 5.13 10x6/uL (4.32-5.72); White Blood Cell (WBC) Count 7.3 10x3/uL (3.5-10.5)
[2021-07-31 17:24] LABS: ALT (SGPT) 27 U/L (8-55); AST (SGOT) 16 U/L (5-34); Albumin 4.4 g/dL (3.5-5.0); Alkaline Phosphatase 73 U/L (40-110); Anion Gap 13 mmol/L (10-20); BUN (Urea Nitrogen) 10 mg/dL (8.9-20.6); Bilirubin, Total 0.6 mg/dL (0.2-1.2); Calc. Creatinine Clearance 0 mL/min (70-130); Calcium 10.1 mg/dL (7.8-10.44); Carbon Dioxide 27 mmol/L (22-29); Chloride 106 mmol/L (98-107); Globulin 2.1 g/dL (2.4-3.5); Glucose 80 mg/dL (70-105); Potassium 4.5 mmol/L (3.5-5.1); Protein, Total 6.5 g/dL (6.0-8.3); Sodium 141 mmol/L (136-145)
[2021-08-01 00:41] LABS: SARS-CoV-2 PCR by NAA Not Detected (NotDetected)
== END 2021-07-31 15:47 | disposition home or self-care (01) ==
LOC: LABBT 15:46
PROVIDERS: ATTEND Surgery
DX: Z01.812 Encounter for preprocedural laboratory examination (principal); K40.90 Unilateral inguinal hernia, without obstruction or gangrene, not specified as recurrent; Z20.822 Contact with and (suspected) exposure to COVID-19
CPT/HCPCS: 80053; 85025; U0003; U0005

== ENCOUNTER 2021-08-05 05:49 | Day surgery (SDC) | payer BC ==
[2021-08-01 12:51] VITALS: BMI 38.7
[2021-08-05] MEDS ORDERED: ceFAZolin 2 GM/DEX 5% 100 ML BAG ONE (06:11)
[2021-08-05] MEDS ORDERED: Bupivacaine PF 0.5% 30 ML VIAL ONE (06:26)
[2021-08-05] MEDS ORDERED: Lidocaine 1% w/Epinephrine 1:100K 20 ML VIAL ONE (06:26)
[2021-08-05] MEDS ORDERED: Bupivacaine 0.25% 10 ML VIAL ONE ×2 (06:41)
[2021-08-05] MEDS ORDERED: Fentanyl 100 MCG/2 ML VIAL ONE ×3 (06:54→09:24)
[2021-08-05] MEDS ORDERED: Lidocaine 1% PF 5 ML VIAL ONE (07:33)
[2021-08-05] MEDS ORDERED: Ondansetron PF 4 MG/2 ML Vial ONE (07:33)
[2021-08-05] MEDS ORDERED: PROPOFOL 200 MG/20 ML VIAL ONE (07:33)
[2021-08-05] MEDS ORDERED: Dexamethasone 20 MG/5 ML VIAL ONE (07:33)
[2021-08-05] MEDS ORDERED: Ketorolac Tromethamine 30 MG/ML VIAL ONE (07:33)
[2021-08-05] MEDS ORDERED: Midazolam HCl 2 mg/2 ml Vial ONE (07:34)
[2021-08-05] MEDS ORDERED: HYDROcodone/Acetaminophen 5/325 mg Tablet ONE (10:02)
== END 2021-08-05 11:30 | disposition home or self-care (01) ==
LOC: SDC 05:49
PROVIDERS: ATTEND Surgery
PROC: 0YU60JZ Supplement Left Inguinal Region with Synthetic Substitute, Open Approach (ICD-10-PCS; principal; 2021-08-05)
DX: K40.90 Unilateral inguinal hernia, without obstruction or gangrene, not specified as recurrent (principal); I10 Essential (primary) hypertension; G89.29 Other chronic pain; M25.569 Pain in unspecified knee; Z87.891 Personal history of nicotine dependence; Z79.899 Other long term (current) drug therapy; Z88.8 Allergy status to other drugs, medicaments and biological substances
CPT/HCPCS: C1781; J1100; J1885; J2250; J2405; J2704; J3010; S0020

== ENCOUNTER 2022-02-21 12:59 | Outpatient (CLI) | payer BC | END 2022-02-21 13:00 | disposition home or self-care (01) | LOC: SCSMRI 12:59 | PROVIDERS: ATTEND Family Medicine | DX: M51.16 Intervertebral disc disorders with radiculopathy, lumbar region (principal) | CPT/HCPCS: 72148 ==

== ENCOUNTER 2022-04-15 13:10 | Outpatient (CLI) | payer BC | END 2022-04-15 13:11 | disposition home or self-care (01) | LOC: TBSIIMAG 13:10 | PROVIDERS: ATTEND Neurological Surgery | DX: M54.16 Radiculopathy, lumbar region (principal) | CPT/HCPCS: 72100 ==

== ENCOUNTER 2022-05-12 15:09 | Outpatient (CLI) | payer BC ==
[2022-05-12 16:50] LABS: Hemoglobin 15.7 g/dL (13.5-17.5); Mean Corpuscular HGB CONC 35.4 g/dL (32.0-36.0); Mean Corpuscular Hemoglobin 31.5 pg (27.0-33.0); Mean Platelet Volume 10.8 fl (7.4-10.4); Platelet Count 227 10x3/uL (150-450); RBC Distribution Width 11.6 % (11.5-14.5); Red Blood Cell (RBC) Count 4.99 10x6/uL (4.32-5.72); White Blood Cell (WBC) Count 7.8 10x3/uL (3.5-10.5)
[2022-05-12 17:11] LABS: INR-International Normal Ratio 0.9; PTT 25.8 sec (22.0-33.0); Prothrombin Time 10.3 sec (9.5-12.1)
== END 2022-05-12 15:10 | disposition home or self-care (01) ==
LOC: LABBT 15:09
PROVIDERS: ATTEND Neurological Surgery
DX: Z01.818 Encounter for other preprocedural examination (principal); M51.26 Other intervertebral disc displacement, lumbar region; Z20.822 Contact with and (suspected) exposure to COVID-19
CPT/HCPCS: 85027; 85610; 85730; 87811; 93005; 93010

== ENCOUNTER 2022-05-15 10:05 | Day surgery (SDC) | payer BC ==
[2022-05-13 10:52] VITALS: BMI 38.7
[2022-05-15] MEDS ORDERED: Bupivacaine HCl 0.5%/Epinephrine 1:200,000/PF 30 ml Vial ONE (11:14)
[2022-05-15] MEDS ORDERED: Thrombin 5000 UNITS/5 ML VIAL ONE (11:14)
[2022-05-15] MEDS ORDERED: Neomycin-Polymyxin 1 ML AMP ONE (11:14)
[2022-05-15] MEDS ORDERED: fentaNYL Citrate/PF 100 MCG/2 ML SYRINGE ONE ×2 (12:25→14:33)
[2022-05-15] MEDS ORDERED: Midazolam HCl 2 mg/2 ml Vial ONE (12:25)
[2022-05-15] MEDS ORDERED: CEFAZOLIN 2 GM VIAL ONE (12:25)
[2022-05-15] MEDS ORDERED: Sodium Chloride 0.9% 100 ML ONE (12:25)
[2022-05-15] MEDS ORDERED: Lidocaine 2% Jelly 5 ML TUBE ONE (12:26)
[2022-05-15] MEDS ORDERED: Metoclopramide HCl 10 MG/2 ML VIAL ONE (12:40)
[2022-05-15] MEDS ORDERED: PROPOFOL 200 MG/20 ML VIAL ONE (12:40)
[2022-05-15] MEDS ORDERED: Phenylephrine 10 MG/ML VIAL ONE (12:40)
[2022-05-15] MEDS ORDERED: ePHEDrine 50 MG/ML VIAL ONE (12:40)
[2022-05-15] MEDS ORDERED: Rocuronium Bromide 10 MG/ML (10ML VIAL) ONE (12:40)
[2022-05-15] MEDS ORDERED: Dexamethasone 20 MG/5 ML VIAL ONE (12:40)
[2022-05-15] MEDS ORDERED: SUGAMMADEX SODIUM 200 MG/2 ML VIAL ONE (14:32)
[2022-05-15] MEDS ORDERED: Fentanyl 100 MCG/2 ML VIAL ONE ×2 (15:00→15:20)
[2022-05-15] MEDS ORDERED: Tamsulosin HCl 0.4 MG CAP ONE (15:25)
[2022-05-15] MEDS ORDERED: HYDROcodone/Acetaminophen 5/325 mg Tablet ONE (16:24)
[2022-05-15] MEDS ORDERED: Cyclobenzaprine 10 MG TAB ONE (16:57)
== END 2022-05-15 17:13 | disposition home or self-care (01) ==
LOC: SDC 10:05
PROVIDERS: ATTEND Neurological Surgery
PROC: 0SB20ZZ Excision of Lumbar Vertebral Disc, Open Approach (ICD-10-PCS; principal; 2022-05-15)
PROC: 01NB0ZZ Release Lumbar Nerve, Open Approach (ICD-10-PCS; principal; 2022-05-15)
DX: M51.16 Intervertebral disc disorders with radiculopathy, lumbar region (principal); M51.17 Intervertebral disc disorders with radiculopathy, lumbosacral region; I10 Essential (primary) hypertension; F17.200 Nicotine dependence, unspecified, uncomplicated; Z79.899 Other long term (current) drug therapy; Z88.5 Allergy status to narcotic agent; Z88.8 Allergy status to other drugs, medicaments and biological substances
CPT/HCPCS: 76000; J0690; J1100; J2250; J2370; J2704; J2765; J3010; J3370; J3490